=== PATIENT | female | born 1960 | race Caucasian/White ===

== ENCOUNTER 2016-11-28 16:19 | Emergency (ER) | payer MEDICAID ==
[~2016-11-28] VITALS: Ht 167.6 cm; Wt 95.0 kg
[~2016-11-28 16:19] MED LIST: ACYC800T PO; ATOR20TA15 PO; BACTOIN EACH NARE; EMTR1TAB2 PO; FENT25DI T-DERMAL; LYRI200C PO; METF1000 PO; [UNRECOGNIZED DRUG - REMARK]; bp med
[2016-11-28 16:21] VITALS: BP 196/87; PULSE 93; RESP 16; TEMP 98.3; O2SAT 97
[2016-11-28] MEDS ORDERED: MOME17I EACH NARE (18:12)
[2016-11-28] MEDS ORDERED: AMOX500C PO (18:12)
--- NOTE | 2016-11-28 18:12 | PD ---
HPI Chief Complaint: ENT Complaint Time Seen by Provider: 18:10 Travel History International Travel<30 days: No Contact w/Intl Traveler<30days: No Traveled to known affect area: No History of Present Illness HPI 56-year-old female presents to the emergency Department with complaint of nasal congestion 4 days. Reports facial pressure and headache. Nasal congestion is worse on the left than right. Fullness in her ears. Denies sore throat or cough. Reports subjective fever. Has taken be provided for her symptoms with no relief. Has not taken any other medications or tried any treatments to relieve her symptoms. Denies chest pain, shortness of breath, abdominal pain, nausea, vomiting. Has Establish primary care provider. History of hypertension and has taken her medications today. No other modifying factors or associated signs and symptoms. PFSH Past Medical History Asthma: No Autoimmune Disease: Yes (HIV) Cardiovascular Problems: Yes (HTN) COPD: No Diabetes: No Diminished Hearing: No Hepatitis: Yes ("HEP C") Immune Disorder: Yes ("HIV" ) Musculoskeletal: Yes ("DISC DISEASE") ?: Not Past Surgical History Tonsillectomy: Yes (1972) Social History Alcohol Use: No Tobacco Use: No (DENIES) Substance Use: No Allergies-Medications (Allergen,Severity, Reaction): Coded Allergies: Tylenol (Verified Adverse Reaction, Mild, "CAN'T TAKE,HAVE HEP C", 11/28/16) Reported Meds & Prescriptions Reported Meds & Active Scripts Active Nasonex Nasal Clemmons (Mometasone Furoate) 50 Mcg/Act Naspr 2 Clemmons EACH NARE DAILY PRN Amoxicillin 500 Mg Cap 500 Mg PO BID 10 Days Bactroban Nasal Oint (Mupirocin Nasal Oint) 2% Oint 1 Applic EACH NARE BID For 5 days. Reported Odefsey (Cdoqgdbxaracv-Kgcpouyozse-Jpavqimsv Alafenam) 200-200-25 Mg Tab 1 Tab PO DAILY Acyclovir 800 Mg Tab 800 Mg PO BID Metformin (Metformin HCl) 1,000 Mg Tab 1,000 Mg PO DAILY With a meal Atorvastatin (Atorvastatin Calcium) 20 Mg Tab 20 Mg PO BID Fentanyl Patch 72 HR (Fentanyl) 25 Mcg/Hr Patch 25 Mcg T-DERMAL Q72H Lyrica (Pregabalin) 200 Mg Cap 200 Mg PO TID [bp med] [Other Hiv Med] Review of Systems Except as stated in HPI: all other systems reviewed are Neg Physical Exam Narrative GENERAL: Well-nourished, well-developed occasional female patient, in no acute distress SKIN: Warm and dry. No rash. HEAD: Atraumatic. Normocephalic. Frontal and maxillary sinus tenderness on palpation. EYES: Pupils equal and round at 3 mm with brisk reaction. No scleral icterus. No injection or drainage. PERRLA. ENT: Mucosa pink and moist. Oropharynx without erythema, exudates, tonsillar edema.. No uvular edema. No uvular, palatal, or tonsillar deviation. Airway patent. Nasal congestion noted. EARS: Bilateral pinnae and external canals appear within normal limits. Bilateral tympanic membranes without erythema, dullness or perforation. NECK: Trachea midline. No lymphadenopathy. CARDIOVASCULAR: Regular rate and rhythm. No murmur appreciated. RESPIRATORY: No accessory muscle use. Clear to auscultation. Breath sounds equal bilaterally. GASTROINTESTINAL: Abdomen soft, non-tender, nondistended. Hepatic and splenic margins not palpable. Bowel sounds are active 4 quadrants. MUSCULOSKELETAL: No obvious deformities. No clubbing. No cyanosis. No edema. NEUROLOGICAL: Awake and alert. Oriented 3. No obvious cranial nerve deficits. Motor grossly within normal limits. Normal speech. Moves all extremities. 5/5 strength to all extremities. PSYCHIATRIC: Appropriate mood and affect; insight and judgment normal. Data Data Last Documented VS Vital Signs Date Time Temp Pulse Resp B/P Pulse Ox O2 Delivery O2 Flow Rate FiO2 11/28/16 16:21 98.3 93 16 196/87 97 MDM Medical Decision Making Medical Screen Exam Complete: Yes Emergency Medical Condition: Yes Medical Record Reviewed: Yes Differential Diagnosis Sinusitis, upper respiratory infection, viral illness Narrative Course 56-year-old female physical examination consistent with sinusitis. Afebrile and nontoxic-appearing. Denies fever, chills, nausea, vomiting home. Patient has history of hypertension and takes blood pressure medication daily; has taken her medications today. Denies symptoms of hypertension. Patient requesting antibiotics or current symptoms. Amoxicillin and Nasonex prescribed for home. Patient is medically cleared and stable for discharge. Discussed reasons to return to the emergency department. Instructed patient to follow up with primary care provider. Patient agrees with treatment plan. The patients vital signs are stable and the patient is stable for outpatient follow-up and treatment. Patient discharged home, stable and in no acute distress. Diagnosis Primary Impression: Sinusitis Qualified Code: J32.9 - Sinusitis, unspecified chronicity, unspecified location Referrals: Primary Care Physician Patient Instructions: General Instructions, Safe Use of Cough and Cold Medicines (ED), Sinusitis (ED) Departure Forms: Tests/Procedures, Work Release Enter return to work date: Nov 30, 2016 Additional Instructions: Antibiotics as prescribed and complete full course Ibuprofen or Tylenol as instructed and as needed for fever/pain Ewsl-jfh-bzdkynm cough and cold medications as directed and as needed for symptom management Get plenty of sleep/rest Drink plenty of fluids to prevent dehydration; popsicles and Gatorade Use an air humidifier/turn off ceiling fans Follow-up with primary care provider Return immediately to the emergency department with worsening of symptoms Med/Other Pt SpecificInfo: Prescription(s) given Scripts Mometasone Nasal Clemmons (Nasonex Nasal Clemmons)50 Mcg/Act Naspr2 Clemmons EACH NARE DAILY PRN (NASAL CONGESTION) #1 BOTTLE Ref 0 Prov:Lisa Teresa 11/28/16 Amoxicillin 500 Mg [id number] Mg PO BID 10 Days Ref 0 Prov:Lisa Teresa 11/28/16 Disposition: 01 DISCHARGE HOME Condition: Stable Lisa Teresa Nov 28, 2016 18:12
[2017-01-06] MEDS ORDERED: METF1000 PO (10:23)
[2017-01-06] MEDS ORDERED: ATOR20TA15 PO (10:23)
[2017-01-06] MEDS ORDERED: LYRI50CA PO (10:23)
[2017-01-06] MEDS ORDERED: LACT10SO PO (10:23)
[2017-01-06] MEDS ORDERED: ATOR40TA16 PO (10:31)
[2017-01-06] MEDS ORDERED: VENTAER INH (10:52)
[2017-01-19] MEDS ORDERED: ATOR40TA16 PO (18:15)
[2017-01-21] MEDS ORDERED: VENTAER INH (18:05)
[2017-03-10] MEDS ORDERED: ATOR40TA16 PO (13:25)
== END 2016-11-28 18:31 | disposition home or self-care (01) ==
LOC: NEPB 16:19
DX: J32.9 Chronic sinusitis, unspecified (principal); I10 Essential (primary) hypertension; B19.20 Unspecified viral hepatitis C without hepatic coma; B20 Human immunodeficiency virus [HIV] disease
CPT/HCPCS: 99283

== ENCOUNTER 2017-05-05 18:00 | Emergency (ER) | payer MEDICAID ==
[~2017-05-05] VITALS: Ht 168.9 cm; Wt 95.0 kg
[~2017-05-05 18:00] MED LIST changes: -ATOR20TA15 PO; +ATOR40TA16 PO; -BACTOIN EACH NARE; +LACT10SO PO; -LYRI200C PO; +LYRI50CA PO; +MOME17I EACH NARE; +VENTAER INH
[2017-05-05 18:02] VITALS: BP 160/82; PULSE 76; RESP 20; TEMP 98; O2SAT 96
--- NOTE | 2017-05-05 18:08 | PD ---
Physical Exam Date Seen by Provider: May 05, 2017 Time Seen by Provider: 18:07 Narrative 57 yo female here for left ankle pain. No injury. Sharp pain. No fevers, chills or sweats. No rash. Going on for few days. Some numbness to it. Vitals are stable in triage. Awaiting Bed placement. Data Data Last Documented VS Vital Signs Date Time Temp Pulse Resp B/P Pulse Ox O2 Delivery O2 Flow Rate FiO2 05/05/17 18:02 98.0 76 20 160/82 [address] [facility] Medical Record Reviewed: Yes Supervised Visit with ALLEN: Jaime Garg May 05, 2017 18:08
[2017-05-17] MEDS ORDERED: VENTAER INH (15:03)
[2017-07-14] MEDS ORDERED: ALBUAER3 INH (13:51)
== END 2017-05-05 20:16 | disposition left against medical advice (07) ==
LOC: NED 18:00
DX: M25.572 Pain in left ankle and joints of left foot (principal)
CPT/HCPCS: 99281

== ENCOUNTER → 2017-09-06 | Outpatient (CLI) | payer MEDICAID ==
[~2017-09-06] MED LIST changes: +ALBUAER3 INH; -VENTAER INH
== END ==
LOC: HRSP 08:45
PROVIDERS: ATTEND Family Medicine
DX: J44.9 Chronic obstructive pulmonary disease, unspecified (principal)
CPT/HCPCS: 94060